=== PATIENT | male | born 1945 | race Two or more races ===

== ENCOUNTER 2016-08-19 15:43 | Inpatient (IN) | payer MEDICARE, OTHER ==
[~2016-08-19] VITALS: Ht 170.2 cm; Wt 67.6 kg
[2016-08-19 16:04] LABS: BASOPHILS # (AUTO) 0.8 /CMM (0.0-0.2); BASOPHILS % (AUTO) 3.9 % (0.0-2.0); DIFF TOTAL % 100 %; EOSINOPHILS % (AUTO) 0.1 % (0.0-6.0); HEMATOCRIT 47 % (39-51); HEMOGLOBIN 15.1 g/dL (13.5-17.5); LYMPHOCYTES # (AUTO) 1.4 /CMM (0.8-4.8); LYMPHOCYTES % (AUTO) 6.7 % (20.0-44.0); MEAN CORPUSCULAR HEMOGLOBIN 29 PG (26.0-33.0); MEAN CORPUSCULAR HGB CONC 32 g/dl (31.0-36.0); MEAN CORPUSCULAR VOLUME 91 fL (80-96); MONOCYTES # (AUTO) 0.3 /CMM (0.1-1.30); MONOCYTES % (AUTO) 1.6 % (2.0-12.0); NEUTROPHILS # (AUTO) 18.9 /CMM (1.8-8.9); NEUTROPHILS % (AUTO) 87.7 % (43.0-81.0); PLATELET COUNT (AUTO) 99 /CMM (150-450); RED BLOOD CELL COUNT(AUTO) 5.13 MIL/uL (4.5-6.0); WHITE BLOOD COUNT (AUTO) 21.4 K/uL (4.3-11.0)
[2016-08-19 16:17] LABS: INR 1.1 (0.87-1.13); PROTHROMBIN TIME 11.5 SECS (9.5-12.7)
[2016-08-19 16:18] LABS: ALBUMIN 3.3 g/dL (3.4-5.0); BILIRUBIN,DIRECT 0.4 mg/dL (0.0-0.2); CALCIUM, SERUM 8.9 mg/dL (8.5-10.1); CREATININE 2.2 mg/dL (0.6-1.3); INDIRECT BILIRUBIN 0.6 mg/dL (0.0-1.1); POTASSIUM 3.8 mmol/L (3.5-5.1); TOTAL PROTEIN, SERUM 6.8 g/dL (6.4-8.2)
[2016-08-19] MEDS ORDERED: TAMS0.4C34 PO (16:21)
[2016-08-19] MEDS ORDERED: ROSU10TA25 PO (16:21)
[2016-08-19] MEDS ORDERED: HYDR-4076 PO (16:21)
[2016-08-19] MEDS ORDERED: FOLI0.8T23 PO (16:21)
[2016-08-19] MEDS ORDERED: LINA145C PO (16:21)
[2016-08-19] MEDS ORDERED: FEBU80TA PO (16:21)
[2016-08-19] MEDS ORDERED: FLUT1DIS5 IH (16:21)
[2016-08-19] MEDS ORDERED: FINA5TAB11 PO (16:21)
[2016-08-19] MEDS ORDERED: FURO40TA5 PO (16:21)
[2016-08-19] MEDS ORDERED: NITR0.4T6 SL (16:21)
[2016-08-19] MEDS ORDERED: COMBIVENT RESPIMAT INH (16:21)
[2016-08-19] MEDS ORDERED: GLIP10TA11 PO (16:21)
[2016-08-19] MEDS ORDERED: TIOT18CA3 IH (16:21)
[2016-08-19] MEDS ORDERED: CALC0.253 PO (16:21)
[2016-08-19] MEDS ORDERED: FERR325T28 PO (16:21)
[2016-08-19] MEDS ORDERED: ERGO50003 PO (16:21)
[2016-08-19 18:02] LABS: LYMPHOCYTES % (MANUAL) 2 % (16-48)
[2016-08-19 18:03] LABS: PLATELET ESTIMATE DECREASED
[2016-08-19] MEDS ORDERED: HYDROCODONE/APAP 5/325MG 1 EACH TABLET PO PRN (18:30)
[2016-08-19] MEDS ORDERED: MAGNESIUM HYDROXIDE 30 ML UDC PO PRN ×2 (18:30→19:00)
[2016-08-19] MEDS ORDERED: ZOLPIDEM TARTRATE 5 MG TABLET PO PRN ×2 (18:30→19:00)
[2016-08-19] MEDS ORDERED: ONDANSETRON HCL/PF 4 MG/2 ML VIAL IVP PRN ×2 (18:30→19:00)
[2016-08-19] MEDS ORDERED: ACETAMINOPHEN 325 MG TABLET PO PRN ×2 (18:30→19:00)
[2016-08-19] MEDS ORDERED: MAG HYDROX/AL HYDROX/SIMETH 30 ML UDC PO PRN ×2 (18:30→19:00)
[2016-08-19 20:00] VITALS: BP 103/72
[2016-08-19] MEDS ORDERED: FEE PK DOSING 1 MIN EA MC ONE (20:54)
[2016-08-19] MEDS ORDERED: IPRATROPIUM NEB FS 0.5 MG/2.5 ML AMPUL.NEB NEB PRN (21:00)
[2016-08-19] MEDS ORDERED: ALBUTEROL FS 2.5 MG/3 ML VIAL.NEB NEB PRN (21:00)
[2016-08-19] MEDS ORDERED: IV NS 0.9% 1,000 ML BAG IV ONE (21:00)
[2016-08-19] MEDS ORDERED: NITROGLYCERIN 0.4 MG/TAB BOTTLE SL PRN (21:00)
[2016-08-19] MEDS ORDERED: IV NS 0.9% 1,000 ML IV ONE (21:00)
[2016-08-19] MEDS ORDERED: IV SET PRIMARY PUMP SET 1 EA INFUS.SET MC ONE (21:31)
[2016-08-19] MEDS ORDERED: SECONDARY IV SET 1 EA INFUS.SET MC ONE ×2 (21:31→21:36)
[2016-08-19] MEDS ORDERED: VANCOMYCIN 1 GM VIAL ONE (21:35)
[2016-08-19] MEDS ORDERED: IV D5W 250 ML IV ONE (21:35)
[2016-08-19] MEDS ORDERED: DEXTROSE 50%-WATER 50 ML DISP.SYRIN ONE (21:40)
[2016-08-19] MEDS: BLOOD SUGAR DIAGNOSTIC 1 EACH STRIP IN SCH (21:40)
[2016-08-19] MEDS: DEXTROSE 50%-WATER 50 ML DISP.SYRIN IV PRN (21:44)
[2016-08-19] MEDS ORDERED: VANCOMYCIN 1 GM in IV D5W 250 ML IV ONE (22:00)
[2016-08-20] VITALS: BP 114/84
[2016-08-20] MEDS ORDERED: PIPERACILLIN /TAZOBACTAM 3.375 G in IV D5W 50 ML IV SCH ×2
[2016-08-20] MEDS: PIPERACILLIN /TAZOBACTAM 2.25 G in IV D5W 50 ML IV SCH ×5 (00:26→23:34)
[2016-08-20] MEDS: HYDROCODONE/APAP 5/325MG 1 EACH TABLET PO PRN (01:56)
[2016-08-20 04:00] VITALS: BP 107/42
[2016-08-20] MEDS: DEXTROSE 50%-WATER 50 ML DISP.SYRIN IV PRN ×8 (04:10→21:06)
[2016-08-20] MEDS ORDERED: IV D5/ 0.9% NACL 1,000 ML IV ONE (04:20)
[2016-08-20] MEDS ORDERED: DEXTROSE 50%-WATER 50 ML DISP.SYRIN ONE ×2 (04:20→06:44)
[2016-08-20] MEDS ORDERED: IV D5/ 0.9% NACL 1,000 ML IV PRN (04:30)
[2016-08-20] MEDS: BLOOD SUGAR DIAGNOSTIC 1 EACH STRIP IN SCH ×4 (06:54→21:04)
[2016-08-20 08:00] VITALS: BP 122/56
[2016-08-20] MEDS ORDERED: Medication Not On Formulary EA (Linaclotide (Linzess) 145 MCG) PO PRN (09:00)
[2016-08-20] MEDS ORDERED: TIOTROPIUM BROMIDE 6 CAP/BOX CAP.W.DEV IH SCH (09:00)
[2016-08-20] MEDS ORDERED: glipiZIDE 10 MG TABLET PO SCH (09:00)
[2016-08-20] MEDS ORDERED: FLUTICASONE/SALMETEROL DISKUS IH SCH (09:00)
[2016-08-20] MEDS ORDERED: ERGOCALCIFEROL (VITAMIN D 2) 50,000 UNIT CAPSULE PO SCH (09:00)
[2016-08-20] MEDS ORDERED: COMBIVENT RESPIMAT INH SCH (09:00)
[2016-08-20] MEDS: FINASTERIDE (5 MG) 5 MG TABLET PO SCH (09:21)
[2016-08-20] MEDS: FLUTICASONE/SALMETEROL DISKUS IH SCH ×2 (09:21→18:41)
[2016-08-20] MEDS: TAMSULOSIN 0.4 MG CAP.SR.24H PO SCH ×2 (09:21→18:25)
[2016-08-20] MEDS: FERROUS SULFATE (325 MG) 325 MG/TAB TABLET PO SCH (09:23)
[2016-08-20] MEDS: CALCITRIOL 0.25 MCG CAPSULE PO SCH (09:23)
[2016-08-20] MEDS: VIT B CMPLX 3/FA/VIT C/BIOTIN 1 TAB TABLET PO SCH (09:23)
[2016-08-20] MEDS: hydrALAZINE HCL 25 MG TABLET PO SCH ×2 (09:24→17:00)
[2016-08-20] MEDS ORDERED: Z GUARD REMEDY 2 OZ OINT TP PRN (10:30)
[2016-08-20] MEDS: ATORVASTATIN 10 MG TABLET PO SCH (11:00)
[2016-08-20] MEDS: HYDROGEL DRESSING 90 GM TUBE TP SCH (11:03)
[2016-08-20] MEDS: UREA 10% -AHA 4% CREAM 57 GM TUBE TP SCH ×2 (11:03→18:39)
[2016-08-20] MEDS: Z GUARD REMEDY 2 OZ OINT TP SCH ×2 (11:04→18:39)
[2016-08-20 12:00] VITALS: BP 100/70
[2016-08-20 12:54] LABS: CALCIUM, SERUM 8.7 mg/dL (8.5-10.1); CREATININE 2.2 mg/dL (0.6-1.3); POTASSIUM 3.2 mmol/L (3.5-5.1)
[2016-08-20] MEDS: MORPHINE SULFATE INJ 2 MG/ML DISP.SYRIN IV PRN (13:15)
[2016-08-20] MEDS: ALBUTEROL FS 2.5 MG/0.5 ML VIAL.NEB NEB SCH ×2 (13:17→19:30)
[2016-08-20] MEDS: IPRATROPIUM NEB FS 0.5 MG/2.5 ML AMPUL.NEB NEB SCH ×2 (13:17→19:30)
[2016-08-20 15:04] LABS: DIFF TOTAL % 100 %; EOSINOPHILS % (AUTO) 0.1 % (0.0-6.0); HEMATOCRIT 46 % (39-51); HEMOGLOBIN 14.4 g/dL (13.5-17.5); LYMPHOCYTES # (AUTO) 0.4 /CMM (0.8-4.8); LYMPHOCYTES % (AUTO) 1.4 % (20.0-44.0); MEAN CORPUSCULAR HEMOGLOBIN 30 PG (26.0-33.0); MEAN CORPUSCULAR HGB CONC 31 g/dl (31.0-36.0); MEAN CORPUSCULAR VOLUME 94 fL (80-96); MONOCYTES # (AUTO) 0.7 /CMM (0.1-1.30); MONOCYTES % (AUTO) 2.9 % (2.0-12.0); NEUTROPHILS # (AUTO) 23.6 /CMM (1.8-8.9); NEUTROPHILS % (AUTO) 95.6 % (43.0-81.0); PLATELET COUNT (AUTO) 102 /CMM (150-450); RED BLOOD CELL COUNT(AUTO) 4.89 MIL/uL (4.5-6.0); WHITE BLOOD COUNT (AUTO) 24.7 K/uL (4.3-11.0)
[2016-08-20 15:55] LABS: BAND % (MANUAL) 6 % (0.0-5.0); BASOPHILS % (MANUAL) 0 % (0.0-2.0); EOSINOPHILS % (MANUAL) 0 % (0-4); LYMPHOCYTES % (MANUAL) 1 % (16-48); PLATELET ESTIMATE DECREASED
[2016-08-20 15:56] LABS: BURR CELLS 1+; RBC MORPHOLOGY COMMENT ABNORMAL RBC MORPH
[2016-08-20 15:58] LABS: ANISOCYTOSIS 1+; POIKILOCYTOSIS 1+
[2016-08-20 16:00] VITALS: BP 91/43
[2016-08-20] MEDS ORDERED: SECONDARY IV SET 1 EA INFUS.SET MC ONE ×2 (16:03→18:45)
[2016-08-20] MEDS: POTASSIUM CL. PREMIX PERIPHER. 50 ML IV SCH ×5 (16:12→20:52)
[2016-08-20] MEDS ORDERED: IV SET PRIMARY PUMP SET 1 EA INFUS.SET MC ONE (18:45)
[2016-08-20] MEDS ORDERED: IV NS 0.9% 250 ML IV ONE (18:45)
[2016-08-20] MEDS: Sodium Chloride 154 MEQ in IV 10% DEXTROSE 1,000 ML IV PRN (19:11)
[2016-08-20 20:00] VITALS: BP 92/45
[2016-08-20] MEDS ORDERED: VANCOMYCIN 1 GM in IV D5W 250 ML IV SCH (22:00)
[2016-08-21] VITALS (7 sets, daily range): BP systolic 94–109; BP diastolic 37–97
[2016-08-21] MEDS: VANCOMYCIN 0.75 GM in IV D5W 250 ML IV SCH (01:07)
[2016-08-21] MEDS: IPRATROPIUM NEB FS 0.5 MG/2.5 ML AMPUL.NEB NEB SCH ×4 (01:30→22:03)
[2016-08-21] MEDS: ALBUTEROL FS 2.5 MG/0.5 ML VIAL.NEB NEB SCH ×4 (01:30→22:03)
[2016-08-21] MEDS: PIPERACILLIN /TAZOBACTAM 2.25 G in IV D5W 50 ML IV SCH ×3 (05:30→17:42)
[2016-08-21 08:33] LABS: CALCIUM, SERUM 8.6 mg/dL (8.5-10.1); POTASSIUM 3.6 mmol/L (3.5-5.1)
[2016-08-21] MEDS: BLOOD SUGAR DIAGNOSTIC 1 EACH STRIP IN SCH ×4 (08:47→21:29)
[2016-08-21] MEDS: DEXTROSE 50%-WATER 50 ML DISP.SYRIN IV PRN (08:48)
[2016-08-21] MEDS: HYDROGEL DRESSING 90 GM TUBE TP SCH (08:56)
[2016-08-21] MEDS: UREA 10% -AHA 4% CREAM 57 GM TUBE TP SCH ×2 (08:56→16:52)
[2016-08-21] MEDS: Z GUARD REMEDY 2 OZ OINT TP SCH ×2 (08:56→16:48)
[2016-08-21] MEDS: FLUTICASONE/SALMETEROL DISKUS IH SCH ×2 (08:58→16:52)
[2016-08-21] MEDS: Sodium Chloride 154 MEQ in IV 10% DEXTROSE 1,000 ML IV PRN ×2 (08:59→23:30)
[2016-08-21] MEDS: hydrALAZINE HCL 25 MG TABLET PO SCH ×2 (09:00→16:48)
[2016-08-21] MEDS: TAMSULOSIN 0.4 MG CAP.SR.24H PO SCH ×2 (09:51→16:45)
[2016-08-21] MEDS: CALCITRIOL 0.25 MCG CAPSULE PO SCH (09:51)
[2016-08-21] MEDS: VIT B CMPLX 3/FA/VIT C/BIOTIN 1 TAB TABLET PO SCH (09:52)
[2016-08-21] MEDS: FINASTERIDE (5 MG) 5 MG TABLET PO SCH (09:52)
[2016-08-21] MEDS: FERROUS SULFATE (325 MG) 325 MG/TAB TABLET PO SCH (09:52)
[2016-08-21] MEDS: ATORVASTATIN 10 MG TABLET PO SCH (09:53)
[2016-08-21] MEDS: MORPHINE SULFATE INJ 2 MG/ML DISP.SYRIN IV PRN (12:19)
[2016-08-21 13:50] LABS: DIFF TOTAL % 100 %; EOSINOPHILS # (AUTO) 0.1 /CMM (0.0-0.7); EOSINOPHILS % (AUTO) 0.2 % (0.0-6.0); HEMATOCRIT 40 % (39-51); HEMOGLOBIN 12.7 g/dL (13.5-17.5); LYMPHOCYTES # (AUTO) 0.7 /CMM (0.8-4.8); LYMPHOCYTES % (AUTO) 3.2 % (20.0-44.0); MEAN CORPUSCULAR HEMOGLOBIN 30 PG (26.0-33.0); MEAN CORPUSCULAR HGB CONC 32 g/dl (31.0-36.0); MEAN CORPUSCULAR VOLUME 92 fL (80-96); MONOCYTES # (AUTO) 0.7 /CMM (0.1-1.30); MONOCYTES % (AUTO) 3.3 % (2.0-12.0); NEUTROPHILS # (AUTO) 20.9 /CMM (1.8-8.9); NEUTROPHILS % (AUTO) 93.3 % (43.0-81.0); PLATELET COUNT (AUTO) 80 /CMM (150-450); WHITE BLOOD COUNT (AUTO) 22.4 K/uL (4.3-11.0)
[2016-08-21 15:26] LABS: BAND % (MANUAL) 1 % (0.0-5.0); LYMPHOCYTES % (MANUAL) 7 % (16-48)
[2016-08-21 15:27] LABS: ANISOCYTOSIS 2+; BASOPHILS % (MANUAL) 0 % (0.0-2.0); EOSINOPHILS % (MANUAL) 0 % (0-4); PLATELET ESTIMATE DECREASED; RBC MORPHOLOGY COMMENT NORMAL RBC MORPH
[2016-08-21] MEDS: HYDROMORPHONE 1 MG/1 ML DISP.SYRIN IV PRN ×2 (16:44→21:34)
[2016-08-22] VITALS: BP 105/55
[2016-08-22] MEDS: PIPERACILLIN /TAZOBACTAM 2.25 G in IV D5W 50 ML IV SCH ×5 (00:19→23:54)
[2016-08-22] MEDS: VANCOMYCIN 0.75 GM in IV D5W 250 ML IV SCH ×2 (00:25→23:48)
[2016-08-22] MEDS: HYDROMORPHONE 1 MG/1 ML DISP.SYRIN IV PRN ×4 (02:04→19:38)
[2016-08-22] MEDS: ALBUTEROL FS 2.5 MG/0.5 ML VIAL.NEB NEB SCH ×4 (02:31→19:18)
[2016-08-22] MEDS: IPRATROPIUM NEB FS 0.5 MG/2.5 ML AMPUL.NEB NEB SCH ×4 (02:31→19:18)
[2016-08-22 04:00] VITALS: BP 100/45
[2016-08-22 07:18] LABS: BASOPHILS % (AUTO) 0.1 % (0.0-2.0); DIFF TOTAL % 100 %; EOSINOPHILS % (AUTO) 0.1 % (0.0-6.0); HEMATOCRIT 36 % (39-51); HEMOGLOBIN 11.7 g/dL (13.5-17.5); LYMPHOCYTES # (AUTO) 0.3 /CMM (0.8-4.8); LYMPHOCYTES % (AUTO) 2.5 % (20.0-44.0); MEAN CORPUSCULAR HEMOGLOBIN 30 PG (26.0-33.0); MEAN CORPUSCULAR HGB CONC 33 g/dl (31.0-36.0); MEAN CORPUSCULAR VOLUME 92 fL (80-96); MONOCYTES # (AUTO) 0.6 /CMM (0.1-1.30); NEUTROPHILS # (AUTO) 10.8 /CMM (1.8-8.9); NEUTROPHILS % (AUTO) 92.3 % (43.0-81.0); PLATELET COUNT (AUTO) 66 /CMM (150-450); RED BLOOD CELL COUNT(AUTO) 3.88 MIL/uL (4.5-6.0); WHITE BLOOD COUNT (AUTO) 11.7 K/uL (4.3-11.0)
[2016-08-22 07:44] LABS: CALCIUM, SERUM 8.5 mg/dL (8.5-10.1); CREATININE 1.9 mg/dL (0.6-1.3)
[2016-08-22] MEDS: BLOOD SUGAR DIAGNOSTIC 1 EACH STRIP IN SCH ×5 (07:52→21:49)
[2016-08-22 08:00] VITALS: BP 117/55
[2016-08-22] MEDS ORDERED: DEXTROSE 50%-WATER 50 ML DISP.SYRIN IV PRN (08:30)
[2016-08-22] MEDS: CALCITRIOL 0.25 MCG CAPSULE PO SCH (08:33)
[2016-08-22] MEDS: ATORVASTATIN 10 MG TABLET PO SCH (08:33)
[2016-08-22] MEDS: hydrALAZINE HCL 25 MG TABLET PO SCH ×2 (08:34→17:13)
[2016-08-22] MEDS: VIT B CMPLX 3/FA/VIT C/BIOTIN 1 TAB TABLET PO SCH (08:35)
[2016-08-22] MEDS: TAMSULOSIN 0.4 MG CAP.SR.24H PO SCH ×2 (08:35→17:14)
[2016-08-22] MEDS: FINASTERIDE (5 MG) 5 MG TABLET PO SCH (08:35)
[2016-08-22] MEDS: FERROUS SULFATE (325 MG) 325 MG/TAB TABLET PO SCH (08:35)
[2016-08-22] MEDS: Z GUARD REMEDY 2 OZ OINT TP SCH ×2 (08:36→17:12)
[2016-08-22] MEDS: FLUTICASONE/SALMETEROL DISKUS IH SCH ×2 (08:36→17:12)
[2016-08-22] MEDS: UREA 10% -AHA 4% CREAM 57 GM TUBE TP SCH ×2 (08:36→17:13)
[2016-08-22] MEDS: HYDROGEL DRESSING 90 GM TUBE TP SCH (08:37)
[2016-08-22] MEDS: INSULIN ASPART NOVOLOG 100 UNIT/ML CARTRIDGE SQ PRN ×3 (09:15→17:16)
[2016-08-22 11:52] LABS: LYMPHOCYTES % (MANUAL) 3 % (16-48)
[2016-08-22 11:53] LABS: ANISOCYTOSIS 3+; PLATELET ESTIMATE DECREASED
[2016-08-22] MEDS: POTASSIUM CL. PREMIX PERIPHER. 50 ML IV SCH ×2 (11:59→12:43)
[2016-08-22 16:00] VITALS: BP 121/63
[2016-08-22 20:00] VITALS: BP 116/65
[2016-08-22] MEDS ORDERED: IV NS 0.9% 250 ML IV ONE (23:53)
[2016-08-23] MEDS: HYDROMORPHONE 1 MG/1 ML DISP.SYRIN IV PRN ×3 (01:25→23:47)
[2016-08-23] MEDS: ALBUTEROL FS 2.5 MG/0.5 ML VIAL.NEB NEB SCH ×4 (01:32→19:13)
[2016-08-23] MEDS: IPRATROPIUM NEB FS 0.5 MG/2.5 ML AMPUL.NEB NEB SCH ×4 (01:32→19:14)
[2016-08-23 04:00] VITALS: BP 102/51
[2016-08-23] MEDS: PIPERACILLIN /TAZOBACTAM 2.25 G in IV D5W 50 ML IV SCH ×4 (05:44→23:45)
[2016-08-23 06:46] LABS: DIFF TOTAL % 100 %; EOSINOPHILS % (AUTO) 0.3 % (0.0-6.0); HEMATOCRIT 35 % (39-51); HEMOGLOBIN 11.4 g/dL (13.5-17.5); LYMPHOCYTES # (AUTO) 0.4 /CMM (0.8-4.8); LYMPHOCYTES % (AUTO) 3.6 % (20.0-44.0); MEAN CORPUSCULAR HEMOGLOBIN 30 PG (26.0-33.0); MEAN CORPUSCULAR HGB CONC 33 g/dl (31.0-36.0); MEAN CORPUSCULAR VOLUME 92 fL (80-96); MONOCYTES # (AUTO) 0.7 /CMM (0.1-1.30); MONOCYTES % (AUTO) 6.7 % (2.0-12.0); NEUTROPHILS # (AUTO) 9.7 /CMM (1.8-8.9); NEUTROPHILS % (AUTO) 89.4 % (43.0-81.0); PLATELET COUNT (AUTO) 64 /CMM (150-450); RED BLOOD CELL COUNT(AUTO) 3.75 MIL/uL (4.5-6.0); WHITE BLOOD COUNT (AUTO) 10.9 K/uL (4.3-11.0)
[2016-08-23 06:55] LABS: CALCIUM, SERUM 8.9 mg/dL (8.5-10.1); POTASSIUM 3.4 mmol/L (3.5-5.1)
[2016-08-23 08:00] VITALS: BP_SYST 113; BP_DIAS 51; BP_DIAS 53
[2016-08-23] MEDS: FLUTICASONE/SALMETEROL DISKUS IH SCH ×2 (08:01→16:05)
[2016-08-23] MEDS: FINASTERIDE (5 MG) 5 MG TABLET PO SCH (08:03)
[2016-08-23] MEDS: INSULIN ASPART NOVOLOG 100 UNIT/ML CARTRIDGE SQ PRN (08:03)
[2016-08-23] MEDS: VIT B CMPLX 3/FA/VIT C/BIOTIN 1 TAB TABLET PO SCH (08:04)
[2016-08-23] MEDS: TAMSULOSIN 0.4 MG CAP.SR.24H PO SCH ×2 (08:04→16:05)
[2016-08-23] MEDS: FERROUS SULFATE (325 MG) 325 MG/TAB TABLET PO SCH (08:04)
[2016-08-23] MEDS: CALCITRIOL 0.25 MCG CAPSULE PO SCH (08:04)
[2016-08-23] MEDS: ATORVASTATIN 10 MG TABLET PO SCH (08:04)
[2016-08-23] MEDS: hydrALAZINE HCL 25 MG TABLET PO SCH ×2 (08:07→16:06)
[2016-08-23] MEDS: BLOOD SUGAR DIAGNOSTIC 1 EACH STRIP IN SCH ×4 (08:08→21:50)
[2016-08-23 08:09] LABS: BAND % (MANUAL) 2 % (0.0-5.0); EOSINOPHILS % (MANUAL) 1 % (0-4); LYMPHOCYTES % (MANUAL) 8 % (16-48); PLATELET ESTIMATE DECREASED
[2016-08-23] MEDS: UREA 10% -AHA 4% CREAM 57 GM TUBE TP SCH ×2 (08:14→16:07)
[2016-08-23] MEDS: Z GUARD REMEDY 2 OZ OINT TP SCH ×2 (08:14→16:08)
[2016-08-23] MEDS: HYDROGEL DRESSING 90 GM TUBE TP SCH (08:14)
[2016-08-23] MEDS ORDERED: POTASSIUM CHLORIDE 20 MEQ TAB.PRT.SR PO ONE (11:30)
[2016-08-23] MEDS: *INSULIN ASPART NOVOLOG 100 UNIT/ML CARTRIDGE SQ PRN ×2 (11:33→17:32)
[2016-08-23] MEDS ORDERED: POTASSIUM CHLORIDE 10 MEQ TABLET.SA PO ONE (12:00)
[2016-08-23] MEDS: HYDROCODONE/APAP 5/325MG 1 EACH TABLET PO PRN ×2 (12:03→16:06)
[2016-08-23] MEDS: VANCOMYCIN 0.75 GM in IV D5W 250 ML IV SCH (14:45)
[2016-08-23 16:00] VITALS: BP 118/60
[2016-08-23 20:00] VITALS: BP 118/51
[2016-08-24] MEDS: IPRATROPIUM NEB FS 0.5 MG/2.5 ML AMPUL.NEB NEB SCH ×4 (01:24→19:57)
[2016-08-24] MEDS: ALBUTEROL FS 2.5 MG/0.5 ML VIAL.NEB NEB SCH ×4 (01:24→19:57)
[2016-08-24 04:00] VITALS: BP 120/60
[2016-08-24] MEDS ORDERED: IV NS 0.9% 250 ML IV ONE (04:54)
[2016-08-24] MEDS: PIPERACILLIN /TAZOBACTAM 2.25 G in IV D5W 50 ML IV SCH ×4 (04:57→23:32)
[2016-08-24] MEDS: BLOOD SUGAR DIAGNOSTIC 1 EACH STRIP IN SCH ×4 (06:35→21:46)
[2016-08-24] MEDS: INSULIN ASPART NOVOLOG 100 UNIT/ML CARTRIDGE SQ PRN ×2 (06:38→17:40)
[2016-08-24 06:49] LABS: BASOPHILS % (AUTO) 0.1 % (0.0-2.0); DIFF TOTAL % 100 %; EOSINOPHILS % (AUTO) 0.3 % (0.0-6.0); HEMATOCRIT 35 % (39-51); HEMOGLOBIN 11.5 g/dL (13.5-17.5); LYMPHOCYTES # (AUTO) 0.5 /CMM (0.8-4.8); LYMPHOCYTES % (AUTO) 3.8 % (20.0-44.0); MEAN CORPUSCULAR HEMOGLOBIN 30 PG (26.0-33.0); MEAN CORPUSCULAR HGB CONC 33 g/dl (31.0-36.0); MEAN CORPUSCULAR VOLUME 93 fL (80-96); MONOCYTES # (AUTO) 0.7 /CMM (0.1-1.30); NEUTROPHILS # (AUTO) 10.9 /CMM (1.8-8.9); NEUTROPHILS % (AUTO) 89.8 % (43.0-81.0); PLATELET COUNT (AUTO) 64 /CMM (150-450); RED BLOOD CELL COUNT(AUTO) 3.81 MIL/uL (4.5-6.0); WHITE BLOOD COUNT (AUTO) 12.1 K/uL (4.3-11.0)
[2016-08-24 07:21] LABS: CALCIUM, SERUM 9.7 mg/dL (8.5-10.1); POTASSIUM 3.8 mmol/L (3.5-5.1)
[2016-08-24 08:00] VITALS: BP 100/46
[2016-08-24] MEDS: hydrALAZINE HCL 25 MG TABLET PO SCH ×2 (09:00→17:00)
[2016-08-24] MEDS: ATORVASTATIN 10 MG TABLET PO SCH (09:08)
[2016-08-24] MEDS: FERROUS SULFATE (325 MG) 325 MG/TAB TABLET PO SCH (09:08)
[2016-08-24] MEDS: CALCITRIOL 0.25 MCG CAPSULE PO SCH (09:08)
[2016-08-24] MEDS: VIT B CMPLX 3/FA/VIT C/BIOTIN 1 TAB TABLET PO SCH (09:08)
[2016-08-24] MEDS: FINASTERIDE (5 MG) 5 MG TABLET PO SCH (09:08)
[2016-08-24] MEDS: TAMSULOSIN 0.4 MG CAP.SR.24H PO SCH ×2 (09:08→17:29)
[2016-08-24] MEDS: HYDROGEL DRESSING 90 GM TUBE TP SCH (09:09)
[2016-08-24] MEDS: FLUTICASONE/SALMETEROL DISKUS IH SCH ×2 (09:09→17:32)
[2016-08-24] MEDS: UREA 10% -AHA 4% CREAM 57 GM TUBE TP SCH ×2 (09:09→17:31)
[2016-08-24] MEDS: Z GUARD REMEDY 2 OZ OINT TP SCH ×2 (09:10→17:31)
[2016-08-24] MEDS: HYDROCODONE/APAP 5/325MG 1 EACH TABLET PO PRN ×2 (10:34→17:29)
[2016-08-24 10:57] LABS: LYMPHOCYTES % (MANUAL) 6 % (16-48)
[2016-08-24 10:58] LABS: ANISOCYTOSIS 2+; PLATELET ESTIMATE DECREASED
[2016-08-24 12:00] VITALS: BP 100/46
[2016-08-24] MEDS ORDERED: BUMETANIDE INJ 8 MG in IV NS 0.9% 48 ML IV ONE (12:00)
[2016-08-24] MEDS: VANCOMYCIN 0.75 GM in IV D5W 250 ML IV SCH (14:00)
[2016-08-24 16:00] VITALS: BP 111/53
[2016-08-24] MEDS ORDERED: HYDROMORPHONE 1 MG/1 ML DISP.SYRIN IV PRN (16:00)
[2016-08-24 20:00] VITALS: BP 108/56
[2016-08-24] MEDS: *INSULIN ASPART NOVOLOG 100 UNIT/ML CARTRIDGE SQ PRN (22:21)
[2016-08-25] VITALS: BP 104/51
[2016-08-25] MEDS: ALBUTEROL FS 2.5 MG/0.5 ML VIAL.NEB NEB SCH ×4 (01:30→19:59)
[2016-08-25] MEDS: IPRATROPIUM NEB FS 0.5 MG/2.5 ML AMPUL.NEB NEB SCH ×4 (01:30→20:00)
[2016-08-25 04:00] VITALS: BP 107/57
[2016-08-25] MEDS: PIPERACILLIN /TAZOBACTAM 2.25 G in IV D5W 50 ML IV SCH ×3 (05:29→17:39)
[2016-08-25] MEDS: BLOOD SUGAR DIAGNOSTIC 1 EACH STRIP IN SCH ×4 (06:53→21:00)
[2016-08-25] MEDS: INSULIN ASPART NOVOLOG 100 UNIT/ML CARTRIDGE SQ PRN ×3 (06:55→17:35)
[2016-08-25 06:59] LABS: DIFF TOTAL % 100 %; EOSINOPHILS % (AUTO) 0.3 % (0.0-6.0); HEMATOCRIT 37 % (39-51); LYMPHOCYTES # (AUTO) 0.6 /CMM (0.8-4.8); LYMPHOCYTES % (AUTO) 4.4 % (20.0-44.0); MEAN CORPUSCULAR HEMOGLOBIN 30 PG (26.0-33.0); MEAN CORPUSCULAR HGB CONC 33 g/dl (31.0-36.0); MEAN CORPUSCULAR VOLUME 93 fL (80-96); MONOCYTES # (AUTO) 0.6 /CMM (0.1-1.30); NEUTROPHILS # (AUTO) 12.7 /CMM (1.8-8.9); NEUTROPHILS % (AUTO) 91.3 % (43.0-81.0); PLATELET COUNT (AUTO) 63 /CMM (150-450); RED BLOOD CELL COUNT(AUTO) 3.99 MIL/uL (4.5-6.0); WHITE BLOOD COUNT (AUTO) 13.9 K/uL (4.3-11.0)
[2016-08-25 07:11] LABS: CALCIUM, SERUM 9.5 mg/dL (8.5-10.1); CREATININE 2.3 mg/dL (0.6-1.3); POTASSIUM 3.7 mmol/L (3.5-5.1)
[2016-08-25 08:00] VITALS: BP 102/55
[2016-08-25] MEDS: ATORVASTATIN 10 MG TABLET PO SCH (08:41)
[2016-08-25] MEDS: VIT B CMPLX 3/FA/VIT C/BIOTIN 1 TAB TABLET PO SCH (08:41)
[2016-08-25] MEDS: CALCITRIOL 0.25 MCG CAPSULE PO SCH (08:41)
[2016-08-25] MEDS: FLUTICASONE/SALMETEROL DISKUS IH SCH ×2 (08:42→17:39)
[2016-08-25] MEDS: FERROUS SULFATE (325 MG) 325 MG/TAB TABLET PO SCH (08:42)
[2016-08-25] MEDS: TAMSULOSIN 0.4 MG CAP.SR.24H PO SCH ×2 (08:42→17:38)
[2016-08-25] MEDS: FINASTERIDE (5 MG) 5 MG TABLET PO SCH (08:42)
[2016-08-25] MEDS: hydrALAZINE HCL 25 MG TABLET PO SCH (08:47)
[2016-08-25] MEDS: UREA 10% -AHA 4% CREAM 57 GM TUBE TP SCH ×2 (08:48→17:32)
[2016-08-25] MEDS: Z GUARD REMEDY 2 OZ OINT TP SCH ×2 (08:49→17:31)
[2016-08-25] MEDS: CARVEDILOL 3.125 MG TABLET PO SCH ×2 (09:58→20:55)
[2016-08-25] MEDS: HYDROGEL DRESSING 90 GM TUBE TP SCH (10:00)
[2016-08-25] MEDS: VANCOMYCIN 500 MG in IV D5W 100 ML IV SCH (10:32)
[2016-08-25 10:59] LABS: LYMPHOCYTES % (MANUAL) 8 % (16-48); PLATELET ESTIMATE DECREASED
[2016-08-25 11:10] LABS: ANISOCYTOSIS 3+
[2016-08-25] MEDS: CLOTRIMAZOLE 1% 15 GM TUBE TP SCH ×2 (11:58→17:32)
[2016-08-25] MEDS: HYDROCODONE/APAP 5/325MG 1 EACH TABLET PO PRN ×2 (14:50→21:31)
[2016-08-25] MEDS: MEROPENEM 500 MG in IV NS 0.9% 50 ML IV SCH (19:53)
[2016-08-25 20:00] VITALS: BP 105/47
[2016-08-25] MEDS: *INSULIN ASPART NOVOLOG 100 UNIT/ML CARTRIDGE SQ PRN (21:00)
[2016-08-26] MEDS: ALBUTEROL FS 2.5 MG/0.5 ML VIAL.NEB NEB SCH ×2 (01:30→07:35)
[2016-08-26] MEDS: IPRATROPIUM NEB FS 0.5 MG/2.5 ML AMPUL.NEB NEB SCH ×2 (01:30→07:35)
[2016-08-26 04:00] VITALS: BP 107/54
[2016-08-26 06:26] LABS: DIFF TOTAL % 100 %; EOSINOPHILS % (AUTO) 0.3 % (0.0-6.0); HEMATOCRIT 35 % (39-51); HEMOGLOBIN 11.7 g/dL (13.5-17.5); LYMPHOCYTES # (AUTO) 0.4 /CMM (0.8-4.8); LYMPHOCYTES % (AUTO) 3.1 % (20.0-44.0); MEAN CORPUSCULAR HEMOGLOBIN 31 PG (26.0-33.0); MEAN CORPUSCULAR HGB CONC 33 g/dl (31.0-36.0); MEAN CORPUSCULAR VOLUME 92 fL (80-96); MONOCYTES # (AUTO) 0.3 /CMM (0.1-1.30); MONOCYTES % (AUTO) 2.1 % (2.0-12.0); NEUTROPHILS # (AUTO) 12.5 /CMM (1.8-8.9); NEUTROPHILS % (AUTO) 94.5 % (43.0-81.0); PLATELET COUNT (AUTO) 65 /CMM (150-450); RED BLOOD CELL COUNT(AUTO) 3.83 MIL/uL (4.5-6.0); WHITE BLOOD COUNT (AUTO) 13.2 K/uL (4.3-11.0)
[2016-08-26] MEDS: INSULIN ASPART NOVOLOG 100 UNIT/ML CARTRIDGE SQ PRN ×2 (06:33→12:17)
[2016-08-26] MEDS: BLOOD SUGAR DIAGNOSTIC 1 EACH STRIP IN SCH ×2 (06:34→12:11)
[2016-08-26 06:45] LABS: ALBUMIN 1.9 g/dL (3.4-5.0); BILIRUBIN,TOTAL 1.4 mg/dL (0.2-1.0); CALCIUM, SERUM 9.3 mg/dL (8.5-10.1); CREATININE 2.4 mg/dL (0.6-1.3); PHOSPHORUS 5.2 mg/dL (2.5-4.9); POTASSIUM 3.5 mmol/L (3.5-5.1); TOTAL PROTEIN, SERUM 5.6 g/dL (6.4-8.2)
[2016-08-26 08:00] VITALS: BP 114/59
[2016-08-26] MEDS: MEROPENEM 500 MG in IV NS 0.9% 50 ML IV SCH (08:40)
[2016-08-26] MEDS: FLUTICASONE/SALMETEROL DISKUS IH SCH (08:41)
[2016-08-26 08:42] VITALS: BP 114/59
[2016-08-26] MEDS: FINASTERIDE (5 MG) 5 MG TABLET PO SCH (08:42)
[2016-08-26] MEDS: ATORVASTATIN 10 MG TABLET PO SCH (08:42)
[2016-08-26] MEDS: FERROUS SULFATE (325 MG) 325 MG/TAB TABLET PO SCH (08:42)
[2016-08-26] MEDS: VIT B CMPLX 3/FA/VIT C/BIOTIN 1 TAB TABLET PO SCH (08:42)
[2016-08-26] MEDS: TAMSULOSIN 0.4 MG CAP.SR.24H PO SCH (08:42)
[2016-08-26] MEDS: CALCITRIOL 0.25 MCG CAPSULE PO SCH (08:42)
[2016-08-26] MEDS: CARVEDILOL 3.125 MG TABLET PO SCH (08:42)
[2016-08-26] MEDS: UREA 10% -AHA 4% CREAM 57 GM TUBE TP SCH (08:43)
[2016-08-26] MEDS: HYDROGEL DRESSING 90 GM TUBE TP SCH (08:43)
[2016-08-26] MEDS: CLOTRIMAZOLE 1% 15 GM TUBE TP SCH (08:43)
[2016-08-26] MEDS: Z GUARD REMEDY 2 OZ OINT TP SCH (08:44)
[2016-08-26 09:42] LABS: ANISOCYTOSIS 1+; LYMPHOCYTES % (MANUAL) 2 % (16-48); PLATELET ESTIMATE DECREASED
[2016-08-26] MEDS ORDERED: SECONDARY IV SET 1 EA INFUS.SET MC ONE (10:35)
[2016-08-26] MEDS: VANCOMYCIN 500 MG in IV D5W 100 ML IV SCH (10:36)
[2016-08-26] MEDS ORDERED: IV NS 0.9% 1,000 ML IV PRN (11:17)
[2016-08-27 12:44] LABS: *SPE ALBUMIN 2.3 g/dL (2.9-4.4)
[2016-08-31 06:12] LABS: PTH, INTACT 52 pg/mL (15-65)
== END 2016-08-26 14:34 | disposition left against medical advice (07) | DRG 539 ==
LOC: ER 15:45 → TELE1 19:01 → MEDSG1 08-21 12:19
PROVIDERS: ADMIT Family Medicine; ATTEND Family Medicine
DX: M46.26 Osteomyelitis of vertebra, lumbar region (principal); N17.0 Acute kidney failure with tubular necrosis; I21.4 Non-ST elevation (NSTEMI) myocardial infarction; G93.41 Metabolic encephalopathy; E43 Unspecified severe protein-calorie malnutrition; L89.313 Pressure ulcer of right buttock, stage 3; E87.1 Hypo-osmolality and hyponatremia; E44.1 Mild protein-calorie malnutrition; I13.0 Hypertensive heart and chronic kidney disease with heart failure and stage 1 through stage 4 chronic kidney disease, or unspecified chronic kidney disease; I50.22 Chronic systolic (congestive) heart failure; M46.40 Discitis, unspecified, site unspecified; D72.829 Elevated white blood cell count, unspecified; D64.9 Anemia, unspecified; D69.2 Other nonthrombocytopenic purpura; E11.22 Type 2 diabetes mellitus with diabetic chronic kidney disease; E87.6 Hypokalemia; J44.9 Chronic obstructive pulmonary disease, unspecified; N18.9 Chronic kidney disease, unspecified; Z90.79 Acquired absence of other genital organ(s); Z95.0 Presence of cardiac pacemaker; Z95.1 Presence of aortocoronary bypass graft; I25.10 Atherosclerotic heart disease of native coronary artery without angina pectoris; E88.09 Other disorders of plasma-protein metabolism, not elsewhere classified; E11.649 Type 2 diabetes mellitus with hypoglycemia without coma; S50.311A Abrasion of right elbow, initial encounter; X58.XXXA Exposure to other specified factors, initial encounter; Y93.9 Activity, unspecified; Y92.009 Unspecified place in unspecified non-institutional (private) residence as the place of occurrence of the external cause; Y99.9 Unspecified external cause status; B35.3 Tinea pedis; L85.3 Xerosis cutis; S30.1XXA Contusion of abdominal wall, initial encounter; S30.0XXA Contusion of lower back and pelvis, initial encounter; D63.8 Anemia in other chronic diseases classified elsewhere; S90.812A Abrasion, left foot, initial encounter; S90.811A Abrasion, right foot, initial encounter; Y92.238 Other place in hospital as the place of occurrence of the external cause; T81.89XA Other complications of procedures, not elsewhere classified, initial encounter; F17.210 Nicotine dependence, cigarettes, uncomplicated; M43.16 Spondylolisthesis, lumbar region; N40.0 Benign prostatic hyperplasia without lower urinary tract symptoms; M46.46 Discitis, unspecified, lumbar region; M48.06 Spinal stenosis, lumbar region; Y84.8 Other medical procedures as the cause of abnormal reaction of the patient, or of later complication, without mention of misadventure at the time of the procedure
CPT/HCPCS: 36415; 70450-TC; 71010-TC; 72131-TC; 72192-TC; 76882; 78306-TC; 80048-TC; 80053-TC; 80076-TC; 80202-TC; 82306; 82550-TC; 82652; 82947-TC; 82962-TC; 83735-TC; 83880; 83970; 84100-TC; 84134-TC; 84155; 84165; 84484-TC; 85025-TC; 85652-TC; 85730-TC; 86140-TC; 87040-TC; 87081-TC; 87086-TC; 93307-TC; 94799-TC; A4216; A4349; A4606; A6248; A6402; A9503; J1170; J1815; J2185; J2270; J2543; J3370; J3480; J3490; J7030; J7042; J7050; J7060; Z7610